=== PATIENT | female | born 1965 | race Caucasian/White ===

== ENCOUNTER → 2018-04-08 | Outpatient (REF) | LOC: M SMT 14:35 | DX: Z00.00 Encounter for general adult medical examination without abnormal findings (principal) ==

== ENCOUNTER → 2024-01-28 | Outpatient (REF) | LOC: M PLAIMG 10:42 | PROVIDERS: ATTEND Internal Medicine | DX: M54.50 Low back pain, unspecified (principal); M41.9 Scoliosis, unspecified; M47.816 Spondylosis without myelopathy or radiculopathy, lumbar region ==